=== PATIENT | male | born 1955 | race Caucasian/White ===

== ENCOUNTER 2017-08-26 13:07 | Outpatient (CLI) | payer OTHER ==
--- NOTE | 2017-08-26 16:05 | RAD ---
FOUR VIEWS LUMBAR SPINE INCLUDIG FLEXION AND EXTENSION: HISTORY: Pain radiating down both legs. FINDINGS: Vertebral bodies are normal in height. Degenerative disk narrowing is seen at L4-L5 and at L5-S1, w ith restricted motion in these levels. Degenerative facet changes are present. Pedicles are intact . IMPRESSION: Moderate arthritic change of the lower lumbar spine. POS: BASH[facility]
== END 2017-08-26 13:08 | disposition home or self-care (01) ==
LOC: TBSIIMAG 13:07
PROVIDERS: ATTEND Surgery
DX: M54.16 Radiculopathy, lumbar region (principal); M46.96 Unspecified inflammatory spondylopathy, lumbar region
CPT/HCPCS: 72120